=== PATIENT | male | born 1995 | race Caucasian/White ===

== ENCOUNTER 2018-10-28 05:48 | Day surgery (SDC) | payer BC, OTHER ==
[~2018-10-28] VITALS: Ht 175.3 cm; Wt 104.3 kg
--- NOTE | ~2018-10-28 | O ---
[facility] [place] [address] OPERATIVE REPORT Name: YEHUDA WU Room #: 150-2 [facility].#: [id number] Admission: 10/28/18 ������������������ Attend Phys: Walt Kauffman MD Discharge: ������������������ Date of : [birth year] Report #: [id number] THIS REPORT FOR: //name// CC: Madhu Kauffman PRIMARY CARE PHYSICIAN: Madhu Gill M.D. PREOPERATIVE DIAGNOSIS: Symptomatic cholelithiasis. POSTOPERATIVE DIAGNOSIS: Symptomatic cholelithiasis. OPERATIVE PROCEDURE DONE: Laparoscopic cholecystectomy. OPERATING SURGEON: Walt Kauffman M.D. INDICATIONS FOR THE PROCEDURE: The patient is a 23-year-old male who presented with complaints of recurrent episodes of right upper quadrant pain that he has been having. Ultrasound scan that was done showed gallstones. The patient was advised laparoscopic cholecystectomy. The patient showed understanding and agreed to proceed. PROCEDURE IN DETAIL: After explaining to the patient in detail, an informed consent was obtained, the patient was identified in the preoperative holding area. The patient was transferred to the operating room and was placed in a supine position. Sequential compression devices were placed for DVT prophylaxis. Preoperative antibiotic . After induction of anesthesia, the abdomen was prepped and draped in a sterile fashion. Through a right upper quadrant 1 cm incision and using Optiview technique, peritoneal cavity was entered and pneumoperitoneum was created. Thereafter, under direct vision, another 5-mm trocar was placed through the supraumbilical incision, another 5-mm trocar was placed in the epigastrium and one in the right lateral subcostal region. The gallbladder was retracted and the peritoneal reflection along the neck of the gallbladder was gently dissected off. Cystic duct was identified and then isolated from the surrounding structures. Cystic artery was identified and isolated from the surrounding structures. Cystic duct was double clipped proximally and single clip applied distally and was then divided. Cystic artery was then divided in a similar fashion. The gallbladder was gently dissected off the liver bed using hook electrocautery. Absolute hemostasis was achieved. Thorough saline irrigation was given. The gallbladder was retrieved using an EndoCatch through the lateral most incision. The incisions were then closed with 4-0 Monocryl. Dermabond was applied. The lateral most incision was closed in layers using 0 Vicryl for the fascia. Skin was closed with 4-0 Monocryl for all the incisions. Dermabond was applied. The patient was stable at the end of the procedure. The patient was awoken up from anesthesia and was transferred to the recovery room in stable condition. [address] [address] OPERATIVE REPORT Name: YEHUDA WU Room #: 150-2 [facility] M.R.#: [id number] Admission: 10/28/18 ������������������ Attend Phys: Walt Kauffman MD Discharge: ������������������ Date of : [birth year] Report #: [id number] ESTIMATED BLOOD LOSS: Minimal. CONDITION OF THE PATIENT: Stable. FLUIDS GIVEN: Per anesthesia notes. SPECIMEN SENT: Gallbladder. COMPLICATIONS: None. ANESTHESIA: General anesthesia. ��������������������������������������������� ���������������������������������������� By: ��������������������������������������������� [id number] Walt Kauffman MD /nt
[2018-10-28 10:52] VITALS: BP 131/59
[2018-10-28 13:44] VITALS: BP 131/59
== END 2018-10-28 14:10 | disposition home or self-care (01) ==
LOC: OR 05:48 → TBA 05:48 → OR 08:17
DX: K80.20 Calculus of gallbladder without cholecystitis without obstruction (principal); Z98.890 Other specified postprocedural states
CPT/HCPCS: 50010; 50101; 50411; 50555; 51489; 52265; 52266; 53307; 53310; 54022; 54118; 55245; 56462; 56525; 56526; 57257; 62110; 62900; 70005